=== PATIENT | female | born 1990 ===

== ENCOUNTER 2017-01-03 13:12 | Emergency (ER) | payer BC ==
[2017-01-03 13:12] VITALS: BMI 26.4
[2017-01-03 13:16] VITALS: BP 106/70; PULSE 100; RESP 16; TEMP 97; O2SAT 100
--- NOTE | 2017-01-03 13:35 | ED PDOC ---
HPI: Abdomen Time Seen by Provider: 01/03/17 13:24 Chief Complaint (Nursing): Abdominal Pain History Per: Patient Onset/Duration Of Symptoms: Days (7) Current Symptoms Are (Timing): Intermittent Episodes Severity: Mild Pain Scale Rating Of: 3 Location Of Pain/Discomfort: LLQ Quality Of Discomfort: Cramping Associated Symptoms: Urinary Symptoms (Frequency). denies: Fever, Nausea, Vomiting, Diarrhea Exacerbating Factors: None Alleviating Factors: None Additional Complaint(s): LLQ abd pain assoc with urinary frequency x 1 week. Denies NVD. No dysuria. LMP 2 weeks ago. Past Medical History Vital Signs: Last Vital Signs Temp 97.0 F L 01/03/17 13:14 Pulse 100 H 01/03/17 13:14 Resp 16 01/03/17 13:14 BP 106/70 01/03/17 13:14 Pulse Ox 100 01/03/17 13:35 - Medical History PMH: No Chronic Diseases - Surgical History Surgical History: - Family History Family History: States: Unknown Family Hx - Home Medications Home Medications: Ambulatory Orders Medication Instructions Recorded Multivit/Folic Acid/I 1 tab PO DAILY 01/20/16 [] oxyCODONE/Acetaminophen [Percocet 1 ea PO Q6 PRN #30 tab 01/30/16 5/325 mg Tab] Miconazole Nitrate [Monistat 7] 45 gm VG DAILY #7 cream.appl 01/03/17 Naproxen [Naprosyn] 500 mg PO Q12H #20 tab 01/03/17 - Allergies Allergies/Adverse Reactions: Allergies Allergy/AdvReac Type Severity Reaction Status Date / Time No Known Allergies Allergy Verified 11/28/15 15:15 Review of Systems Constitutional: Negative for: Fever Gastrointestinal: Positive for: Abdominal Pain. Negative for: Nausea, Vomiting , Diarrhea Genitourinary Female: Negative for: Dysuria, Frequency, Vaginal Bleeding Musculoskeletal: Negative for: Back Pain Physical Exam - Physical Exam Appears: Positive for: Non-toxic, No Acute Distress Skin: Positive for: Normal Color, Warm, DRY Gastrointestinal/Abdominal: Positive for: Bowel Sounds, Soft, Tenderness (LLQ) Pelvic Exam: Positive for: External Exam Normal, Discharge (white). Negative for: No Masses, Blood, Tender W/Cervical Motion, Tender Adnexa, Tender Uterus Back: Negative for: L CVA Tenderness, R CVA Tenderness Extremity: Positive for: Normal ROM Neurologic/Psych: Positive for: Alert, Oriented - Laboratory Results Result Diagrams: 01/03/17 13:45 01/03/17 13:45 - ECG O2 Sat by Pulse Oximetry: 100 Disposition - Clinical Impression Clinical Impression: Ruptured ovarian cyst - Patient ED Disposition Is Patient to be Admitted: No Counseled Patient/Family Regarding: Studies Performed, Diagnosis, Need For Followup, Rx Given - [facility] Disposition: Routine/Home Disposition Time: 14:44 Condition: FAIR Prescriptions: Miconazole Nitrate [Monistat 7] 45 gm VG DAILY #7 cream.appl Naproxen [Naprosyn] 500 mg PO Q12H #20 tab Instructions: Ovarian Cyst (ED), Vulvovaginal Candidiasis (ED) Forms: [facility] [employer] [facility] ([place]incentian)
[2017-01-03 13:50] LABS: BASO % 0.5 % (0.0-2.0); EOS # 0.2 K/uL (0.0-0.7); EOS % 2.4 % (0.0-4.0); HEMATOCRIT 41.3 % (34.0-47.0); LYMPH # 3.2 K/uL (1.0-4.3); LYMPH % 33.2 % (20.0-40.0); MEAN CORPUSCULAR HEMOGLOBIN 27.8 pg (27.0-31.0); MEAN CORPUSCULAR HGB CONC 34.1 g/dL (33.0-37.0); MEAN PLATELET VOLUME 7.7 fl (7.2-11.7); MONO # 0.5 K/uL (0.0-0.8); MONO % 4.9 % (0.0-10.0); NEUT # 5.6 K/uL (1.8-7.0); NRBC % 0.1 % (0.0-0.0); RED CELL DISTRIBUTION WIDTH 13.9 % (11.5-14.5); WHITE BLOOD COUNT 9.6 K/uL (4.8-10.8)
[2017-01-03 13:57] LABS: MEAN CELL VOLUME 81.6 fl (81.0-99.0)
[2017-01-03 14:13] LABS: ALB/GLOB RATIO 1.4 (1.0-2.1); ALKALINE PHOSPHATASE 56 U/L (38-126); ALT/SGPT 28 U/L (9-52); AST/SGOT 33 U/L (14-36); BILIRUBIN,TOTAL 0.8 mg/dl (0.2-1.3); BLOOD UREA NITROGEN 11 mg/dl (7-17); CALCIUM 9.2 mg/dL (8.4-10.2); CARBON DIOXIDE 28 mmol/L (22-30); CHLORIDE 102 mmol/L (98-107); GFR AFRICAN-AMERICAN > 60; GLUCOSE,RANDOM 88 mg/dL (65-105); SODIUM 140 mmol/l (132-148); TOTAL PROTEIN 7.8 G/DL (6.3-8.2)
--- NOTE | 2017-01-03 15:27 | US ---
PROCEDURE: HISTORY: LLQ pain COMPARISON: TECHNIQUE: FINDINGS: The uterus measures 8.7 x 4.9 x 5.2 centimeters. The endometrium measures 14 millimeters. Minimal intra cervical cavity fluid is present. There is minimal fluid in the cul-de-sac. The right ovary measures 2.6 x 3.6 centimeters. Left ovary is 3.4 x 3.4 centimeters. IMPRESSION: Unremarkable pelvic ultrasound.
== END 2017-01-03 14:56 | disposition home or self-care (01) ==
LOC: H.ER 13:12
DX: N83.209 Unspecified ovarian cyst, unspecified side (principal)

== ENCOUNTER 2017-11-26 04:06 | Emergency (ER) | payer BC ==
[2017-11-26 04:06] VITALS: BMI 26.4
--- NOTE | 2017-11-26 04:55 | ED PDOC ---
HPI: Back Time Seen by Provider: 11/26/17 04:21 Chief Complaint (Nursing): Back Pain Chief Complaint (Provider): Back pain History Per: Patient History/Exam Limitations: no limitations Onset/Duration Of Symptoms: Hrs (x3) Current Symptoms Are (Timing): Still Present Associated Symptoms: Other (nausea) Additional Complaint(s): Betsy Bradley is a 27 year old female, with no significant past medical history, who presents to the emergency department for evaluation of mid back pain and periumbilical pain associated with nausea for the last x3 hrs. Patient describes it as sharp and rates it a 10/10 stating it woke her up from her sleep. No history of similar symptoms in the past. She took no medications prior to arrival. She denies any fever, chills, urinary symptoms, hematuria, vomiting, diarrhea, blood in stool, vaginal bleeding, shortness of breath, cough , chest pain, recent travel, sick contacts or prolonged immobility. No further medical complaints. LMP on November 08. PMD: None provided. Past Medical History Reviewed: Historical Data, Nursing Documentation, Vital Signs Vital Signs: Last Vital Signs Temp 97.5 F L 11/26/17 04:18 Pulse 60 11/26/17 04:18 Resp 18 11/26/17 04:18 BP 105/72 11/26/17 04:18 Pulse Ox 100 11/26/17 04:18 - Medical History PMH: No Chronic Diseases - Surgical History Surgical History: (x3) - Family History Family History: States: Unknown Family Hx - Social History Current smoker - smoking cessation education provided: Yes (Light smoker >10 cigarettes daily) Alcohol: None Drugs: Denies - Home Medications Home Medications: Ambulatory Orders Medication Instructions Recorded Multivit/Folic Acid/I 1 tab PO DAILY 01/20/16 [] oxyCODONE/Acetaminophen [Percocet 1 ea PO Q6 PRN #30 tab 01/30/16 5/325 mg Tab] Miconazole Nitrate [Monistat 7] 45 gm VG DAILY #7 cream.appl 01/03/17 Naproxen [Naprosyn] 500 mg PO Q12H #20 tab 01/03/17 Famotidine [Pepcid] 40 mg PO DAILY #5 tablet 11/26/17 Naproxen 500 mg PO BID PRN #20 tab 11/26/17 Ondansetron ODT [Zofran ODT] 4 mg PO Q6 PRN #12 odt 11/26/17 - Allergies Allergies/Adverse Reactions: Allergies Allergy/AdvReac Type Severity Reaction Status Date / Time No Known Allergies Allergy Verified 11/28/15 15:15 Review of Systems ROS Statement: Except As Marked, All Systems Reviewed And Found Negative Constitutional: Negative for: Fever, Chills Cardiovascular: Negative for: Chest Pain Respiratory: Negative for: Cough, Shortness of Breath Gastrointestinal: Positive for: Nausea, Abdominal Pain. Negative for: Vomiting , Diarrhea Genitourinary Female: Negative for: Dysuria, Frequency, Hematuria Musculoskeletal: Positive for: Back Pain Physical Exam - Reviewed Nursing Documentation Reviewed: Yes Vital Signs Reviewed: Yes - Physical Exam Comments: GENERAL APPEARANCE: Patient is awake, alert, oriented x 3, in no acute distress. Uncomfortable appearing. SKIN: Warm, dry; (-) cyanosis. EYES: (-) conjunctival pallor. ENMT: Mucous membranes moist. Airway patent, (-) stridor. NECK: Supple, FROM (-) tenderness, (-) stiffness, (-) lymphadenopathy. CHEST AND RESPIRATORY: (-) rales, (-) rhonchi, (-) wheezes; breath sounds equal bilaterally. Respirations even and nonlabored. HEART AND CARDIOVASCULAR: (-) irregularity ABDOMEN AND GI: Soft; (+) periumbilical tenderness; (-) palpable mass (-) Guarding (-) distention (-) rebound (-) CVA tenderness BACK: (+) diffuse parathoracic & paralumbar tenderness, (-) spasm, (-) direct bony tenderness, (-) deformity. Straight leg raising (-) bilaterally. EXTREMITIES: (-) deformity. Distal pulses good bilaterally. NEURO AND PSYCH: Mental status as above. Intact sensation bilaterally; normal strength in extension of the knees, plantar and dorsiflexion of the toes. Gait : steady. Speech: clear. - Laboratory Results Result Diagrams: 11/26/17 05:05 11/26/17 05:05 Urine POC: Negative Urine dip results: Negative for: Leukocyte Esterase, Blood, Nitrate, Ketones, Glucose, Bilirubin, Protein - ECG O2 Sat by Pulse Oximetry: 100 (RA) Pulse Ox Interpretation: Normal Medical Decision Making Medical Decision Making: Time: 04:20 Initial Impression: Abdominal and back pain, Nausea Initial Plan: --Urine dipstick --Urine --Serum Alcohol --Drug Screen --Pepcid 40 mg IVP --Toradol 30 mg IVP --Zofran ODT 4 mg PO --IV access --CBC --CMP --Lipase --Reevaluation 0455 Udip reviewed and grossly unremarkable. Upreg: Negative 0535 CBC and CMP grossly unremarkable. Alcohol <10. Lipase: 85 Pending urine studies and re-evaluation. 0550 Utox: negative 0620 Patient now reports 2/10 pain to abdomen and states she is "much more comfortable" with resolution of nausea. Patient requesting discharge at this time. Strict return precautions given. Patient remains AAOx3, in no acute distress. Lungs clear to auscultation, cardiac RRR, abdomen soft, non-tender, repeat neuro exam shows no focal findings. VSS, stable for discharge. Lab/Diagnostic results d/w the patient in great detail. Diagnosis of acute abdominal/back pain d/w the patient. Based on history, exam and diagnostic results, plan will be for outpatient follow up. Patient instructed to follow-up with pmd / referral provided / the clinic in 1- 2 days without fail. Advised to take medication as prescribed. Return to the emergency room at any time for any new or worsening symptoms. Patient states she fully agrees with and understands discharge instructions. States that she agrees with the plan and disposition. Verbalized and repeated discharge instructions and plan. I have given the patient opportunity to ask any additional questions. ----- Scribe Attestation: Documented by Tono Guerrero, acting as a scribe for Rosette Corley PA-C. Provider Scribe Attestation: All medical record entries made by the Scribe were at my direction and personally dictated by me. I have reviewed the chart and agree that the record accurately reflects my personal performance of the history, physical exam, medical decision making, and the department course for this patient. I have also personally directed, reviewed, and agree with the discharge instructions and disposition. Disposition - Clinical Impression Clinical Impression: Abdominal pain, Nausea, Mid back pain - Patient ED Disposition Is Patient to be Admitted: No Counseled Patient/Family Regarding: Studies Performed, Diagnosis, Need For Followup, Rx Given - Disposition Referrals: [facility] [Outside] Rock Heredia MD [Medical Doctor] - Disposition: Routine/Home Disposition Time: 06:22 Condition: STABLE Additional Instructions: The emergency medical care you received today was directed towards the acute presenting symptoms. If you were prescribed any medication, please fill it and give as directed. It may take several days for your symptoms to resolve. Return to the Emergency Department at any time if symptoms worsen, do not improve, or if any other problems arise. Please contact your doctor in 2 days for re-evaluation and follow up / or call one of the physicians/clinics you have been referred to that are listed on the Patient Visit Information form that is included in your discharge packet. Bring any paperwork you were given at discharge with you along with any medications to your follow up visit. Our treatment cannot replace ongoing medical care by a primary care provider (PCP) outside of the emergency department. Prescriptions: Famotidine [Pepcid] 40 mg PO DAILY #5 tablet Naproxen 500 mg PO BID PRN #20 tab PRN Reason: Pain, Moderate (4-7) Ondansetron ODT [Zofran ODT] 4 mg PO Q6 PRN #12 odt PRN Reason: Nausea/Vomiting Instructions: Low Back Pain (DC), Acute Abdomen (Belly Pain), Adult (DC), Upper Back Pain, Nausea and Vomiting, Adult Forms: [employer]Citizen [place]) Print Language: CROATIAN - POA Present On Arrival: None Results - Lab Results Lab Results: 11/26/17 11/26/17 11/26/17 05:05 05:05 05:05 WBC 10.9 H RBC 4.81 Hgb 14.0 Hct 41.3 MCV 85.8 D MCH 29.1 MCHC 33.9 RDW 13.5 Plt Count 222 MPV 7.6 Neut % (Auto) 69.6 Lymph % (Auto) 21.7 [place] % (Auto) 5.3 Eos % (Auto) 2.9 Baso % (Auto) 0.5 Neut # (Auto) 7.6 H Lymph # (Auto) 2.4 [place] # (Auto) 0.6 Eos # (Auto) 0.3 Baso # (Auto) 0.1 Sodium 139 Potassium 4.2 Chloride 105 Carbon Dioxide 27 Anion Gap 11 BUN 19 H Creatinine 0.6 L Est GFR ( Amer) > 60 Est GFR (Non-Af Amer) > 60 Random Glucose 104 Calcium 9.0 Total Bilirubin 0.3 AST 17 ALT 19 Alkaline Phosphatase 52 Total Protein 6.9 Albumin 4.0 Globulin 2.9 Albumin/Globulin Ratio 1.4 Lipase 85 Urine Opiates Screen Negative Urine Methadone Screen Negative Ur Barbiturates Screen Negative Ur Phencyclidine Scrn Negative Ur Amphetamines Screen Negative U Benzodiazepines Scrn Negative U Oth Cocaine Metabols Negative U Cannabinoids Screen Negative Alcohol, Quantitative < 10
[2017-11-26 05:11] LABS: BASO # 0.1 K/uL (0.0-0.2); BASO % 0.5 % (0.0-2.0); EOS # 0.3 K/uL (0.0-0.7); EOS % 2.9 % (0.0-4.0); LYMPH # 2.4 K/uL (1.0-4.3); LYMPH % 21.7 % (20.0-40.0); MEAN CELL VOLUME 85.8 fl (81.0-99.0); MEAN CORPUSCULAR HEMOGLOBIN 29.1 pg (27.0-31.0); MEAN CORPUSCULAR HGB CONC 33.9 g/dL (33.0-37.0); MEAN PLATELET VOLUME 7.6 fl (7.2-11.7); MONO # 0.6 K/uL (0.0-0.8); MONO % 5.3 % (0.0-10.0); NEUT # 7.6 K/uL (1.8-7.0); NEUT % 69.6 % (50.0-75.0); RBC 4.81 Mil/uL (3.80-5.20); RED CELL DISTRIBUTION WIDTH 13.5 % (11.5-14.5); WHITE BLOOD COUNT 10.9 K/uL (4.8-10.8)
[2017-11-26 05:29] LABS: ALB/GLOB RATIO 1.4 (1.0-2.1); ALT/SGPT 19 U/L (9-52); AST/SGOT 17 U/L (14-36); BLOOD UREA NITROGEN 19 mg/dl (7-17); GFR NON-AFRICAN AMERICAN > 60; LIPASE 85 U/L (23-300)
[2017-11-26 05:40] LABS: BARBITURATES, UR NEGATIVE (NEGATIVE); BENZODIAZEPINES, UR NEGATIVE (NEGATIVE); OPIATES, UR NEGATIVE (NEGATIVE); PHENCYCLIDINE, UR NEGATIVE (NEGATIVE)
[2017-11-26 06:46] VITALS: BP 114/68; PULSE 67; RESP 16; TEMP 98.4
[2017-11-28 18:00] VITALS: O2SAT 100
== END 2017-11-26 07:34 | disposition home or self-care (01) ==
LOC: H.ER 04:06
DX: M54.9 Dorsalgia, unspecified (principal); R10.9 Unspecified abdominal pain; R11.0 Nausea
CPT/HCPCS: 80053; 81025; 83690; 85025; 96374; 96375; 99284; G0480; J1885

== ENCOUNTER 2018-05-26 04:48 | Emergency (ER) | payer BC ==
[2018-05-26 04:48] VITALS: BMI 26.4
[2018-05-26 05:00] VITALS: RESP 16; TEMP 97.7
--- NOTE | 2018-05-26 05:39 | ED PDOC ---
HPI: Back Time Seen by Provider: 05/26/18 05:14 Chief Complaint (Nursing): Back Pain Chief Complaint (Provider): Back Pain History Per: Patient History/Exam Limitations: no limitations Additional Complaint(s): 28 y/o female presents to the ED with worsening lower back pain. Patient reports symptoms are similar to when she has had the pain before and states that typically walking around help with the pain. However, this time, patient reports that she got nervous the back pain became associated with chest tightness. Patient has a history of anxiety and states this is typical. Patient reports she is very tired and cannot sleep because of the pain. Denies trauma, change in activities, weakness, numbness, or incontinence. Past Medical History Reviewed: Historical Data, Nursing Documentation, Vital Signs Vital Signs: Last Vital Signs Temp 97.7 F 05/26/18 04:58 Pulse 70 05/26/18 04:58 Resp 16 05/26/18 04:58 BP 134/78 05/26/18 04:58 Pulse Ox 100 05/26/18 04:58 - Medical History PMH: Anxiety - Surgical History Surgical History: (x3) - Family History Family History: States: Unknown Family Hx - Home Medications Home Medications: Ambulatory Orders Medication Instructions Recorded Multivit/Folic Acid/I 1 tab PO DAILY 01/20/16 [] oxyCODONE/Acetaminophen [Percocet 1 ea PO Q6 PRN #30 tab 01/30/16 5/325 mg Tab] Miconazole Nitrate [Monistat 7] 45 gm VG DAILY #7 cream.appl 01/03/17 Naproxen [Naprosyn] 500 mg PO Q12H #20 tab 01/03/17 Famotidine [Pepcid] 40 mg PO DAILY #5 tablet 11/26/17 Naproxen 500 mg PO BID PRN #20 tab 11/26/17 Ondansetron ODT [Zofran ODT] 4 mg PO Q6 PRN #12 odt 11/26/17 Cyclobenzaprine [Cyclobenzaprine 10 mg PO BID #10 tab 05/26/18 HCl] - Allergies Allergies/Adverse Reactions: Allergies Allergy/AdvReac Type Severity Reaction Status Date / Time No Known Allergies Allergy Verified 11/28/15 15:15 Review of Systems ROS Statement: Except As Marked, All Systems Reviewed And Found Negative Constitutional: Negative for: Weakness Cardiovascular: Positive for: Chest Pain Genitourinary Female: Negative for: Incontinence Musculoskeletal: Positive for: Back Pain Neurological: Negative for: Weakness, Numbness Physical Exam - Reviewed Nursing Documentation Reviewed: Yes Vital Signs Reviewed: Yes - Physical Exam Appears: Positive for: Well, Non-toxic, No Acute Distress Head Exam: Positive for: ATRAUMATIC, NORMAL INSPECTION, NORMOCEPHALIC Skin: Positive for: Normal Color, Warm, DRY Eye Exam: Positive for: EOMI, Normal appearance, PERRL ENT: Positive for: Normal ENT Inspection Neck: Positive for: Normal, Painless ROM Cardiovascular/Chest: Positive for: Regular Rate, Rhythm. Negative for: Murmur Respiratory: Positive for: Normal Breath Sounds. Negative for: Respiratory Distress Gastrointestinal/Abdominal: Positive for: Normal Exam, Soft. Negative for: Tenderness Back: Positive for: Normal Inspection. Negative for: L CVA Tenderness, R CVA Tenderness, Vertebral Tenderness Extremity: Positive for: Normal ROM, Other (full strength of legs). Negative for: Pedal Edema, Deformity Neurological/Psych: Positive for: Awake, Alert, Normal Tone. Negative for: Motor/Sensory Deficits - ECG O2 Sat by Pulse Oximetry: 100 (RA) Pulse Ox Interpretation: Normal Medical Decision Making Medical Decision Making: Time: 05:33 MDM: Lower back pain with possible anxiety * Flexeril and Toradol for pain * Reevaluation 06:51 Patient reports improvement of symptoms. Patient given prescription for Flexeril for the pain. Patient is discharged home and will follow up with PMD. Scribe Attestation: Documented by Orlando Castellano, acting as a scribe for Rosette Tellez MD. Provider Scribe Attestation: All medical record entries made by the Scribe were at my direction and personally dictated by me. I have reviewed the chart and agree that the record accurately reflects my personal performance of the history, physical exam, medical decision making, and the department course for this patient. I have also personally directed, reviewed, and agree with the discharge instructions and disposition. Disposition - Clinical Impression Clinical Impression: Low back pain - Patient ED Disposition Is Patient to be Admitted: No - Disposition Referrals: [facility] [Outside] Disposition: Routine/Home Disposition Time: 06:51 Condition: IMPROVED Additional Instructions: Take Flexeril as needed for back spasm. Take Motrin or Tylenol for back pain. Follow up with primary medical doctor. Prescriptions: Cyclobenzaprine [Cyclobenzaprine HCl] 10 mg PO BID #10 tab Instructions: Low Back Pain in Adults Forms: [employer] [facility] (Welsh)
[2018-05-26 07:44] VITALS: BP 122/60; PULSE 77; O2SAT 99
== END 2018-05-26 07:10 | disposition home or self-care (01) ==
LOC: H.ER 04:48
DX: M54.5 Low back pain (principal); R07.89 Other chest pain
CPT/HCPCS: 81025; 96372; 99282; J1885

== ENCOUNTER 2018-06-23 21:10 | Emergency (ER) | payer BC ==
[2018-06-23 21:10] VITALS: BMI 26.4
[2018-06-23 21:52] VITALS: BP 105/66; PULSE 106; RESP 16; TEMP 98.2; O2SAT 97
[2018-06-23] MEDS ORDERED: Naproxen 500 MG TAB PO STA (23:30)
[2018-06-23] MEDS ORDERED: Amoxicillin-Clav 875-125 mg Tab PO STA (23:30)
[2018-06-23] MEDS ORDERED: Tdap Vaccine 0.5 ml Vial (10-64 yrs) IM ONE ×2 (23:30→23:51)
--- NOTE | 2018-06-23 23:39 | ED PDOC ---
HPI: Skin/Bite Injury Time Seen by Provider: 06/23/18 22:41 Chief Complaint (Nursing): Bite Chief Complaint (Provider): dog bite History Per: Patient History/Exam Limitations: no limitations Onset/Duration Of Symptoms: Days (3) Current Symptoms Are (Timing): Still Present Quality Of Symptoms: Painful Additional Complaint(s): 28 y/o female presents for evaluation of dog bites to right leg x 3 days. Patient states she was walking into her friends house their pitbull attacked her, bit her in front of right leg and then in the back of right leg when she turned around. Patient reports pain to areas since then. Denies fever, nausea/vomiting, drainage from site, redness to site. NO medications or ice applied for relief Dogs vaccines up to date as per friend Past Medical History Reviewed: Historical Data, Nursing Documentation, Vital Signs Vital Signs: Last Vital Signs Temp 98.2 F 06/23/18 21:47 Pulse 106 H 06/23/18 21:47 Resp 16 06/23/18 21:47 BP 105/66 06/23/18 21:47 Pulse Ox 97 06/23/18 21:47 - Medical History PMH: Anxiety - Surgical History Surgical History: (x3) - Family History Family History: States: Unknown Family Hx - Home Medications Home Medications: Ambulatory Orders Medication Instructions Recorded Multivit/Folic Acid/I 1 tab PO DAILY 01/20/16 [] oxyCODONE/Acetaminophen [Percocet 1 ea PO Q6 PRN #30 tab 01/30/16 5/325 mg Tab] Miconazole Nitrate [Monistat 7] 45 gm VG DAILY #7 cream.appl 01/03/17 Naproxen [Naprosyn] 500 mg PO Q12H #20 tab 01/03/17 Famotidine [Pepcid] 40 mg PO DAILY #5 tablet 11/26/17 Naproxen 500 mg PO BID PRN #20 tab 11/26/17 Ondansetron ODT [Zofran ODT] 4 mg PO Q6 PRN #12 odt 11/26/17 Cyclobenzaprine [Cyclobenzaprine 10 mg PO BID #10 tab 05/26/18 HCl] Amoxicillin/Clavulanate [Augmentin 1 tab PO Q12 #13 tab 06/24/18 875 MG-125 MG] Naproxen [Naprosyn] 500 mg PO Q12 PRN #20 tablet 06/24/18 - Allergies Allergies/Adverse Reactions: Allergies Allergy/AdvReac Type Severity Reaction Status Date / Time No Known Allergies Allergy Verified 11/28/15 15:15 Review of Systems ROS Statement: Except As Marked, All Systems Reviewed And Found Negative Musculoskeletal: Positive for: Leg Pain (right) Physical Exam - Reviewed Nursing Documentation Reviewed: Yes Vital Signs Reviewed: Yes - Physical Exam Appears: Positive for: Well, Non-toxic, No Acute Distress Pulses-Dorsalis Pedis (L): 2+ Pulses-Dorsalis Pedis (R): 2+ Pulses-Post. Tibialis (L): 2+ Pulses-Post. Tibialis (R): 2+ Extremity: Positive for: Normal ROM, Other (4 superficial scabbed puncture wounds anterior right lower leg with [id number] surrounding ecchymosis, tender to touch. 5 superficial scabbed puncture wounds lateral right lower leg with [id number] surrounding ecchymosis, tender to touch. Wounds are dry, no surrounding erythema, skin warmth noted) Neurological/Psych: Positive for: Awake, Alert, Oriented (x3) - ECG O2 Sat by Pulse Oximetry: 97 - Progress ED Course And Treament: -preg -adacel IM -augmentin PO -naproxen PO -wound care Wounds cleaned with NS, bacitracin applied, bandage applied Patient educated on findings, discharged with rx Augmentin, Naproxen Advised ice, elevate, neosporin application daily Follow up PMD within 2-3 days Return precautions given Disposition - Clinical Impression Clinical Impression: Dog bite of right lower leg, Multiple leg contusions - Patient ED Disposition Is Patient to be Admitted: No Counseled Patient/Family Regarding: Diagnosis, Need For Followup, Rx Given - Disposition Referrals: [facility] [Outside] [facility] [Outside] Disposition: Routine/Home Disposition Time: 00:08 Condition: STABLE Additional Instructions: Ice, elevate affected areas Apply neosporin daily Take medications as directed Prescriptions: Amoxicillin/Clavulanate [Augmentin 875 MG-125 MG] 1 tab PO Q12 #13 tab Naproxen [Naprosyn] 500 mg PO Q12 PRN #20 tablet PRN Reason: Pain, Moderate (4-7) Instructions: Animal and Human Bites Forms: [facility] (Lao), [facility] ED School/Work Excuse
[2018-06-23] MEDS ORDERED: Naproxen 500 MG TAB PO ONE (23:46)
[2018-06-23] MEDS ORDERED: Amoxicillin-Clav 875-125 mg Tab PO ONE (23:46)
== END 2018-06-24 00:22 | disposition home or self-care (01) ==
LOC: H.ER 21:10
DX: S81.851A Open bite, right lower leg, initial encounter (principal); S80.11XA Contusion of right lower leg, initial encounter; W54.0XXA Bitten by dog, initial encounter; Y93.01 Activity, walking, marching and hiking; F41.9 Anxiety disorder, unspecified